=== PATIENT | female | born 1940 | race Caucasian/White ===

== ENCOUNTER 2017-10-02 11:03 | Inpatient (IN) | payer MEDICARE, OTHER ==
[~2017-10-02] VITALS: Ht 158.8 cm; Wt 77.1 kg
--- OUTSIDE RECORDS SUMMARY | ~2017-10-02 | XMS | Clinical Summary ---
Demographics + + + | Address | [address] | | | [place] [address] | + + + | Home Phone | | + + + | Preferred Language | Unknown | + + + | Marital Status | Single | + + + | Nondenominational Affiliation | Unknown | + + + | Race | Unknown | + + + | Ethnic Group | Other Race | + + + Author + + + | Author | [facility] | + + + | Organization | [facility] | + + + | Address | Unknown | + + + | Phone | Unavailable | + + + Care Team Providers + +------+ + | Care Environmental Attorney Name | Role | Phone | + +------+ + PP | Unavailable | + +------+ + Source Comments YOBANY is fully live on both [facility] and [facility]Patient[facility] Allergies Not on File Current Medications Not on file Active Problems Not on file Social History + +-------+ +--------+------+ | Tobacco Use | Types | Packs/Day | Years | Date | | | | | Used | | + +-------+ +--------+------+ | Never Assessed | | | | | + +-------+ +--------+------+ + + + | Sex Assigned at | Date Recorded | | | | + + + | Not on file | | + + + Plan of Treatment + + + + + | Health Maintenance | Due Date | Last Done | Comments | + + + + + | INFLUENZA VACCINE | | | | | (FLU SHOT) | 7 | | | + + + + + Results Not on filefrom Last 3 Months"
[~2017-10-02 11:03] MED LIST: ASPIR 8181 MG PO; LEVOTHYROXINE100 MCG PO; LOVASTATIN40 MG PO; METOPROLOL TART50 MG PO; VITAMIN D31000 UNI1 PO
--- NOTE | 2017-10-21 09:32 | NUR ---
10/21/17 0932 Komal Matson 0968-PATIENT ARRIVED TO PACU ON 4L OXYMASK O2 SAT 99% PATIENT REACTIVE OPENS EYES AND BACK TO SLEEP. SB. NO DRAINAGE TO FRANDY AREA. SOLER CATH IN PLACE. SPINAL LEVEL AT L1.
--- NOTE | 2017-10-21 10:30 | NUR ---
PATIENT TO FLOOR FORM PACU. RECEIVED REPORT FROM SURGERY NURSE OSMEL. PATIENT TRANSFER TO HOSP BED WITH 4 PERS ASSIST. PATIENT A&O. DENIES PAIN AND NAUSEA. PATIENT REPORT NUMBNESS AND TINGLING IN THE LOWER EXTREMITIES DUE TO SPINAL. PERIPHERAL PULSE PALPABLE. IV SITE PATENT AND FLUID STARTED AND IT INFUSING WELL. SOLER IN PLACE DRAINING BRIGHT YELLOW URINE. SKIN INTACT. ICE CHIP GIVEN. WILL CONTINUE TO MONITOR PATIENT CALL LIGHT IN REACH.
--- NOTE | 2017-10-21 11:23 | NUR ---
IN TO ROOM TO TAKE PATIENT VITAL SIGNS. PATIENT DENIES PAIN AT THIS TIME. IV SITE PATENT AND FLUID INFUSING WELL. PATIENT REPORTS DISCOMFORT IN THE LOWER ABD. NO NAUSEA. WILL CONTINUE TO MONITOR.
--- NOTE | 2017-10-21 12:42 | NUR ---
PATIENT RESTING IN BED. VITAL TAKEN AND WNL. PATIENT TOLERATED FOOD WELL. DENIES NAUSEA. REPORT NO PAIN BUT DISCOMFORT IN THE LOWER ABD. POSITIVE BOWEL TONE. NO TENDERNESS WITH ABD PALPATION. PATIENT REPORTS MORE SENSATION ON THE LOWER EXTREMITIES. SOLER IN PLACE. IV FLUID INFUSING WELL. NO DISTRESS. WILL CONTINUE TO MONITOR. CALL LIGHT IN REACH.
--- NOTE | 2017-10-21 13:59 | NUR ---
PATIENT RESTING IN BED DENIES PAIN AT THIS TIME. VS TAKEN AND WNL. PATIENT REPORT FULL SENSATION IN LOWER EXTREMITIES. NO NAUSEA. WILL CONTINUE TO MONITOR. CALL LIGHT IN REACH.
--- NOTE | 2017-10-21 16:10 | NUR ---
PATIENT REPORTED BACK DISCOMFORT FROM LYING IN BED BED. PATIENT ASSISTED TO CHAIR. REPORTED MILD DIZZINESS UPON STANDING. SITTING IN THE CHAIR AT THIS TIME. WARM BLANKET PROVIDED AND FRESH WATER. CALL LIGHT IN REACH. WILL CONTINUE TO MONITOR.
--- NOTE | 2017-10-21 16:58 | NUR ---
DR PERSAUD IN TO ROOM TO EVALUATE PATIENT.
--- NOTE | 2017-10-21 17:39 | NUR ---
PATIENT HAD ABOUT 150ML OF EMESIS. ZOFRAN IV ADMINISTERED. RESTING IN CHAIR. REPORT NO PAIN AT THIS TIME. WILL CONTINUE TO MONITOR.
--- NOTE | 2017-10-21 18:13 | NUR ---
PATIENT HAD A FAIR DAY. HAD NOT REPORTED MUCH PAIN. MILD BACK PAIN. PATIENT HAD 150ML OF EMESIS. ZOFRAN TIME ONCE. UP TO CHAIR. SOLER IN PLACE TO BED IN AM IF AMBULATING. U/O QUANTITY SUFFICIENT. 1-2PERS ASSIST. DIZZINESS UPON RISING. VAGINAL PACKING STILL IN. SCD IN PLACE. NEED TO AMBULATE WHEN ABLE.
--- NOTE | 2017-10-21 18:21 | NUR ---
PT IS SITTING UP IN THE CHAIR VISITING WITH FAMILY. PT IS REQUESTING SOME TOAST. TOAST HAS BEEN ORDERED. VS AND I&O'S TAKEN AND DOCUMENTED. PT STATES NO OTHER NEEDS AT THIS TIME. CALL LIGHT IS IN REACH.
--- NOTE | 2017-10-21 20:02 | NUR ---
RECIEVED REPORT FROM DAY SHIFT RN. PT UP IN CHAIR WITH FAMILY IN ROOM. REPORTS NO NEEDS AT THIS TIME CALL LIGHT WITHIN REACH.
--- NOTE | 2017-10-21 20:55 | NUR ---
VITALS DONE AND CHARTED. WAITING A BIT LONGER TO DO I&OS. BEDSIDE TABLE AND CALL LIGHT WITHIN REACH. REFILLED WATER
--- NOTE | 2017-10-21 22:00 | NUR ---
pt appears to be sleeping. rr wnl scd's in place. call light within reach.
--- NOTE | 2017-10-22 | NUR ---
CHECKED ON PT. O2 SAT AT 87% HR 70. PUT PT ON 1L NC. SATS INCREASED TO 97%. CALL LIGHT WITH IN REACH. REPORTS NO PAIN AT THIS TIME. SCDS IN PLACE.
--- NOTE | 2017-10-22 01:58 | NUR ---
VITALS AND I&OS DONE AND CHARTED. BEDSIDE TABLE AND CALL LIGHT WITHIN REACH. SHE NEEDS NOTHING ELSE AT THIS TIME.
--- NOTE | 2017-10-22 04:47 | NUR ---
EYES CLOSE. SCDS IN PLACE. FLAT FACE, NO GRIMISING. RR WNL. O2 IN PLACE 1 L. STAT AT 97%. HR AT 70. SCANT AMOUNT OF CLEAR VAGINAL DRAINAGE. CHANGED CHUX. FLUIDS INFUSIING. CALL LIGHT WITHIN REACH.
--- NOTE | 2017-10-22 07:35 | NUR ---
PT SBA. AT BEDSIDE. NO N/V. FOELY CATH IN PLACE. DC AM WHEN PT WALKS. CONTINUAL PULSE OX. PT ON 1L O2 OVER NIGHT FOR SAT 87%. SCD'S IN PLACE. NO DRAINAGE. IV IN LEFT HAND. SLEPT MOST THIE NIGHT
--- NOTE | 2017-10-22 08:00 | NUR ---
assessment complete. d/c'd zimmer zimmer at this time. updated patient of plan of care with pvr. in room. assisted patient to chair with minimal assist for breakfast. oatmeal ordered. patient has no swelling in lower legs. lungs clear in upper lobes. crackles in the bases of lungs. encouraged is. pt about to deminstrate is. made sl. patient feeling no nausea at this time. call light with inreach. patient agreed to call to attempt to go to the br for post void.
--- NOTE | 2017-10-22 08:44 | NUR ---
STUDENT NURSE AND RN ENETERED ROOM, GAVE SCHDUELED MEDS AND PRN DIPHENHYDRAMINE FOR ITCHING. TOOK VIALS BEFORE GIVING METAPROLOL. BLOOD PRESSURE AND HR WERE WNLS. EMPTIED SOLER CATH. REMOVED SOLER CATH AT 0800. WHEN ASKED PT ABOUT PAIN SHE SAID JUST A LITTLE BURNING FROM THE REMOVAL OF CATH. PT DENIED ANY PAIN FROM SURGERY AND DENIED NAUSEA. EDUCATED PT ON USING INCENTIVE SPIROMETER 10 TIMES EVERY HOUR. AFTER THE CATH WAS REMOVED WE GOT THE PT TO MOVE TO THE CHAIR TO EAT BREAKFAST. AT FIRST THE PT WAS A LITTLE LIGHT HEADED WHEN SHE STOOD UP BUT WE TOOK IT SLOW MOVING HER TO THE CHAIR. CHANGED DRAW SHEET AND MADE BED. DURING HEAD TO TOE ASSESSMENT THERE WAS EXPECTED BRUISING ON BELLY FROM HEPARIN INJECTIONS. WHILE PT WAS SITTING IN CHAIR SHE KEPT COUGHING AFTER INCENTIVE SPIROMETER. TOLD PT TO PRESS CALL LIGHT WHEN SHE NEEDS TO VOID AND THAT A POST VOID RESIDUAL ASSESSMENT WILL BE PREFORMED ON HER. EDUCATED PT ON ASSESSMENT INCLUDES A BLADDER SCAN AFTER EVERY TIME SHE VOIDS. GOAL OF THE DAY IS TO BE AMBULATING AFTER EVERYTIME SHE VOIDS. DOCTOR CALLED WHILE GIVING THE PT MEDS. DOCTOR DISCONTINUED CONTINUOUS LRS. PT IS NOW ON SALINE LOCK. PT IS EAGER TO MEET WITH DOCTOR THIS MORNING. PT IS SITTING UP RIGHT IN CHAIR, CALL LIGHT IN REACH, AND WAITING FOR BREAKFAST. IN ROOM.
--- NOTE | 2017-10-22 09:22 | NUR ---
patient tolerated breakfast. assisted to the br. tolerating ambulating to br well.
--- NOTE | 2017-10-22 09:30 | NUR ---
HELPED PT TO THE BATHROOM. SHE VOIDED WITHOUT ANY COMPLAINTS. POST RESIDUAL ASSESSMENT PERFORMED. PT WENT TO BATHROOM AGAIN TO TRY TO COMPLETELY EMPTY THE BLADDER. DENIED ANY PAIN OR NAUSEA AT THIS TIME.
--- NOTE | 2017-10-22 10:08 | NUR ---
PATIENT AMBULATE TWO LAPS IN FLORES. NO DIZZINESS OR LIGHTHEADEDNESS. PVR DONE. VOIDED 200MLS/ BLADDER SCAN FOR 60
--- NOTE | 2017-10-22 10:18 | NUR ---
AT 0945 PT AMBULATED HALLWAY. DENIED ANY DIZZINESS OR LIGHTHEADEDNESS. CHANGED INTO CLEAN GOWN. POST RESIDUAL ASSESSMENT PERFORMED. PT THEN VOIDED AGAIN. DOCTOR REMOVED VAGINAL PACKING AND TOLD PT SHE WOULD BE BACK TO CHECK IN ON HER LATER IN THE DAY. PT HAD NO COMPAINTS AT THIS TIME. LAYING BACK DOWN IN BED WATCHING TV. CALL LIGHT IN REACH AND BED LOWERED. IN ROOM. VITALS AND I&OS DOCUMENTED IN ROOM. LUNCH WAS ORDERED.
--- NOTE | 2017-10-22 10:39 | NUR ---
patient resting in bed with hob elevated. awaiting dr. gonzales to take out packing. no pain at this time.
--- NOTE | 2017-10-22 11:00 | NUR ---
pt assist into the shower by nursing project coordinator. patient tolerated being up well. patient voided 500mls. bladder scan for 67mls. patient doing well. cont to have no pain.
--- NOTE | 2017-10-22 11:44 | NUR ---
PT TOLERATED ADLS WELL. DIDNT NEED MUCH ASSISTANCE. SHE STATED SHE FEELS WELL AND IS READY TO GO HOME.
--- NOTE | 2017-10-22 11:48 | NUR ---
ENCOURAGED PT TO USE INCENTIVE SPIROMETER. PT COMPLAINS THAT IT HURTS HER LOWER STOMACH TO USE IT. WILL ENCOURAGE PT TO SPLINT WHILE USING INCENTIVE SPIROMETER.
--- NOTE | 2017-10-22 11:57 | NUR ---
patient tolerated shower well. dressed in own clothing per request. ambulate another two laps in headley. remains pain free. having lunch in chair.
--- NOTE | 2017-10-22 11:58 | NUR ---
PT VOIDED 500ML AND AFTER BLADDER SCAN SHOWED 67ML. PT TOOK SHOWER AND TOLERATED WELL, DIDNT NEED ANY ASSISTANCE. CHANGED INTO HER OWN CLOTHES. AMULATED AROUND THE NURSES STATION TWICE. DENIED ANY DIZZINESS, PAIN, LIGHTHEADEDNESS, OR NAUSEA. PT SITTING IN CHAIR WITH CALL LIGHT IN REACH. PRESENT.
--- NOTE | 2017-10-22 12:40 | NUR ---
patient ambulated another two laps. doing well. voided 300mls. bladder scan for 89. patient stating she feels bloated like she needs to have a bm. refusing prune juice at this time. stating the stuff i have this morning should help. encouraged her to keep ambulating and drinking water. husand in room. no o ther needs at this time. no pain at this time.
[2017-10-22] MEDS ORDERED: MOTRIN IB200 MG PO (13:04)
[2017-10-22] MEDS ORDERED: KONDREMUL2.5 ML/5 M PO (13:06)
[2017-10-22] MEDS ORDERED: SENNA8.6 MG PO (13:07)
--- NOTE | 2017-11-11 13:02 | OR ---
[facility] [address] [place], [place] [address] Signed DATE OF OPERATION: 10/21/2017 SURGEON: Paty Armijo MD NUMERICAL CONTROL MACHINE OPERATOR: Lakhwinder Montes MD PREOPERATIVE DIAGNOSIS: Uterovaginal prolapse. POSTOPERATIVE DIAGNOSIS: Uterovaginal prolapse. PROCEDURE: Total vaginal hysterectomy, bilateral salpingectomy, cystoscopy, rectocele repair with dermis reinforcement. ANESTHESIA: Spinal with IV sedation. ESTIMATED BLOOD LOSS: 75 mL combined. DRAINS: Sewell catheter packs vaginal. INDICATIONS AND FINDINGS: The patient is a 77-year-old female, 3, para 3, who has been having worsening vaginal prolapse and desired surgical intervention. She has had some urinary urgency and frequency, and difficulty evacuating the rectum as well. At the time of surgery, the cervix presented at the hymen. The cervix was quite large and the uterus was fairly small and appeared normal. The tubes and ovaries otherwise appeared normal. After completion of the hysterectomy, the cystocele had essentially resolved. She did have a continued grade 2 rectocele. DESCRIPTION OF PROCEDURE: The patient was prepped and draped in the dorsal lithotomy position. A weighted speculum was placed and the cervix was grasped on the anterior and posterior lips with single-tooth tenaculum. The cervix was injected with 1% lidocaine with 1:200,000 epinephrine, total volume of 10 mL. The posterior cul-de-sac was then attempted to be Electronically Signed By: PATY ARMIJO MD 11/11/17 1302 PATIENT NAME: XAVI NUNO OPERATIVE REPORT DATE OF : 42 REPORT #: [id number] PHYSICIAN: PATY ARMIJO MD PCP: Yaneli CORREA MD REPORT IS CONFIDENTIAL AND NOT TO BE RELEASED WITHOUT AUTHORIZATION [facility] [address] [place], [place] [address] Signed entered. This was done with quite a bit of difficulty because of the size of her cervix, this also skewed more to her right. The cervix was regrasped and the posterior cul-de-sac was then entered, though it was a fairly thick cuff and there was some fat in the vaginal cuff as well. Following this, the swan neck speculum was placed in the posterior cul-de-sac. The curved Z clamps were then placed on the uterosacral ligaments on each side, divided with the Bell scissors and suture ligated with 0 Vicryl. The vaginal mucosa was then circumscribed with a knife and sharp dissection was used to push the vaginal mucosa up off the cervix. The anterior peritoneum was entered at this time as well. Serial bites were then taken on each side incorporating the anterior and posterior peritoneum and taking down the cardinal ligaments and the uterine vessels. Each of these were divided and suture ligated with 0 Vicryl. At this point, the remaining broad ligament pedicles could be clamped across with a curved Z clamps and divided. Free ties of 0 Vicryl were placed followed by suture ligatures of 0 Vicryl. The tube on the patient's right was then grasped with a Marni clamp and clamped with a curved Z clamp and removed. Free tie of 0 Vicryl was placed. The same procedure was done on the patient's left. Following this, the posterior cul-de-sac had quite a bit of separation of the peritoneum to the cuff and several rdrbpc-is-upshb sutures of 0 Vicryl were used to bring the peritoneum to the posterior cuff. There was some bleeding just above the uterosacral ligament on the patient's right and this area was also suture ligated with a ifmdnv-lb-flzkl of 0 Vicryl. The anterior peritoneum was tacked to the cuff with a very superficial suture of 0 Vicryl. Inspection of the cuff showed good hemostasis. Angle sutures then placed using 0 Vicryl and these incorporated the vaginal mucosa exteriorized the utero-ovarian pedicle coming across the peritoneum anteriorly and exiting the uterosacral ligament inferiorly. These were done bilaterally and tied laterally. The cuff itself was then closed with a running locking stitch of 0 Vicryl. A very superficial suture was placed near the right angle, there was a fairly raw area. The cystocele had essentially resolved at this point, and because of the difficulties with the hysterectomy, a cystoscopy was done. The Sewell catheter was removed. The patient had received IV fluorescein. The dome of the bladder was evaluated and there was no evidence of injury. The trigone was also thoroughly evaluated and there was no evidence of injury. Both ureteral orifices were identified and clear urine was seen to freely egress from both of these ureteral orifices. The bladder was then drained and the Sewell catheter replaced. The rectocele repair was then begun. A triangle of tissue was removed from the perineal body with a knife. The vaginal mucosa was then undermined and incised in the midline to the apex of the vagina. The vaginal mucosa was from the underlying tissue with a combination of blunt and sharp dissection. This was carried out superiorly and laterally to the ischial spines. Following this, the Capio device was used to deploy a 0 Vicryl suture into the sacrospinous ligament, medial and Electronically Signed By: PATY ARMIJO MD 11/11/17 1302 PATIENT NAME: XAVI NUNO OPERATIVE REPORT DATE OF : 42 REPORT #: [id number] PHYSICIAN: PATY ARMIJO MD PCP: Yaneli CORREA MD REPORT IS CONFIDENTIAL AND NOT TO BE RELEASED WITHOUT AUTHORIZATION [facility] [address] [place], [place] [address] Signed caudal to the spine for use later. The defect in the perirectal fascia type tissue was then reapproximated with interrupted sutures of 0 Vicryl. This was primarily a tear down the patient's right side and there was some separation on the patient's left. Multiple sutures were placed plicating the defect. Following this, a rectal examination was done, which confirmed no sutures compromising the rectal lumen and good reduction of the defect. Dermis which had been repaired according to the package directions and trimmed into a T-shirt type shape was then sutured at the arms to the Capio sutures of the sacrospinous ligaments, these were tied down with appropriate tension. The graft itself was then tacked into place with interrupted sutures of 2-0 Vicryl. This was done at the cuff, at the armhole areas, and down the sides. Following this, another rectal examination was done, which confirmed that there was no sutures compromising the rectal lumen. FloSeal was then injected around the sacrospinous ligaments on each side for hemostasis. The vaginal mucosa was then trimmed quite a bit because of redundancy. The vaginal mucosa was then closed with a running suture of 2-0 Vicryl. This was done from the apex of the vagina to the hymenal ring. The posterior fourchette was recreated with interrupted sutures of 2-0 Vicryl. The perineal body was recreated with interrupted sutures of 2-0 Vicryl. The skin of the perineum was reapproximated with interrupted sutures of subcuticularly placed of 2-0 Vicryl. Inspection of the vault showed good length and caliber. Good hemostasis was noted. The vagina was then packed with sulfa-coated gauze. The patient was taken to the recovery room in good condition. All sponge and needle counts were correct. MD JAGDISH Cochran/RADHAL /[id number] cc: KEIRA Varela MD Electronically Signed By: PATY ARMIJO MD 11/11/17 1302 PATIENT NAME: XAVI NUNO OPERATIVE REPORT DATE OF : 42 REPORT #: [id number] PHYSICIAN: PATY ARMIJO MD PCP: Yaneli CORREA MD REPORT IS CONFIDENTIAL AND NOT TO BE RELEASED WITHOUT AUTHORIZATION
== END 2017-10-22 13:25 | disposition home or self-care (01) | DRG 743 ==
LOC: DSVR 10-21 05:45 → MS 10-21 06:45
PROVIDERS: ADMIT Obstetrics & Gynecology
PROC: 0UT97ZZ Resection of Uterus, Via Natural or Artificial Opening (ICD-10-PCS; principal; 2017-10-21 06:45)
PROC: 0UT27ZZ Resection of Bilateral Ovaries, Via Natural or Artificial Opening (ICD-10-PCS; principal; 2017-10-21 06:45)
PROC: 0UT77ZZ Resection of Bilateral Fallopian Tubes, Via Natural or Artificial Opening (ICD-10-PCS; principal; 2017-10-21 06:45)
DX: N81.3 Complete uterovaginal prolapse (principal); N88.8 Other specified noninflammatory disorders of cervix uteri; N84.0 Polyp of corpus uteri; D25.1 Intramural leiomyoma of uterus
CPT/HCPCS: 00944; 36415; 76942; 80048; 85027; 88305; C1762; C2631; J0694; J1200; J1644; J2250; J2274; J2405; J2704; J2765; J3010; J7120

== ENCOUNTER 2025-02-27 06:29 | Day surgery (SDC) | payer MEDICARE, OTHER ==
[~2025-02-27] VITALS: Ht 158.8 cm; Wt 72.7 kg
[~2025-02-27 06:29] MED LIST changes: +KONDREMUL2.5 ML/5 M PO; +MIDAZOLAM HCL 5 MG/5 ML VIAL IV PRN; +MOTRIN IB200 MG PO; +SENNA8.6 MG PO; +fentaNYL citrate 100 MCG/2 ML VIAL IV PRN
[2025-02-27 06:52] VITALS: BP 155/60
[2025-02-27] MEDS ORDERED: IRBESARTAN300 MG PO (06:55)
[2025-02-27] MEDS ORDERED: AMLODIPINE BESYL5 MG PO (06:55)
[2025-02-27] MEDS ORDERED: DORZOLAMIDE-TIM10 ML OU (06:58)
[2025-02-27] MEDS ORDERED: LATANOPROST2.5 ML OU (06:58)
[2025-02-27] MEDS ORDERED: LIDOCAINE HCL 1% 5 ML SDV INJ ONE (07:00)
[2025-02-27] MEDS ORDERED: IBLOOD GLUCOSE TEST STRIP 1 EA TEST VI PRN (07:00)
[2025-02-27] MEDS ORDERED: LACTATED RINGER'S 1,000 ML IV SCH (07:00)
[2025-02-27] MEDS ORDERED: MIDAZOLAM HCL 5 MG/5 ML VIAL ONE (07:04)
[2025-02-27] MEDS ORDERED: fentaNYL citrate 100 MCG/2 ML VIAL ONE (07:04)
--- NOTE | 2025-02-27 07:14 | NUR ---
VISITED DURING SPIRITUAL CARE ROUNDS. PT IN OVERALL GOOD SPIRITS, NO IMMEDIATE NEEDS. LOG MARKER PROVIDED SUPPORTIVE PRESENCE, HOSPTITALITY, PRAYER, FACILITATED INTERACTION WITH THERAPY ANIMAL. PT EXPRESSED GRATITUDE, MARIELLA.
--- NOTE | 2025-02-27 08:12 | NUR ---
02/27/25 0812 OswaldSamira PATIENT ARRIVES IN PACU ON 3L O2 VIA NC. SATURATION IS 100% OXYGEN REDUCED TO 2L VIA NC IMMEDIATELY. 0810: PATIENT'S OXYGEN SATURATION REMAINS 100% ON 2L VIA NC. OXYGEN IS DISCONTINUED AT THIS TIME.
[2025-02-27 08:46] VITALS: BP 142/56
--- NOTE | 2025-02-28 10:06 | OR ---
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 POSTOPERATIVE DIAGNOSES: 1. Small polyp distal right colon. 2. 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 PROCEDURE: Total colonoscopy to cecum with cold morcellation polypectomy x1. ANESTHESIA: Intravenous sedation, fentanyl 100 mcg, and Versed 5 mg. INDICATION: This 84-year-old white woman is a patient of Dr. Guzman. She last underwent colonoscopy in 2016. In 2015, she underwent resection of a villous adenoma in the sigmoid area with mucosal lift technique. She is here for surveillance colonoscopy. She has no family history of colon cancer and no symptoms currently. She understands the risk of colonoscopy including, but not limited to bleeding, infection, and perforation and wished to proceed. FINDINGS: The prep was excellent. Complete colonoscopy was undertaken of the cecum with full intubation of the cecum. There was a very small adenomatous appearing polyp of the distal ascending colon, which was excised. The minimal arteriovenous malformation area at the hepatic flexure was noted and no consequence. The remaining colon was normal. DESCRIPTION OF PROCEDURE: The patient was brought to the endoscopy suite and placed in lateral decubitus position, given intravenous sedation to the point of slurred speech and nystagmus. Digital rectal examination was normal. An Olympus video colonoscope was passed in the rectum and manipulated throughout the colon. The scope was advanced ultimately to the cecum with some abdominal wall stabilization. The scope was withdrawn. A very small polyp was noted in the distal ascending colon, which was excised with cold morcellation technique. Further withdrawal Electronically Signed By: CARRILLO GONZALEZ MD 02/28/25 1006 PATIENT NAME: XAVI NUNO OPERATIVE REPORT DATE OF : 42 REPORT #: [id number] PHYSICIAN: CARRILLO GONZALEZ MD PCP: GEOFF GUZMAN MD REPORT IS CONFIDENTIAL AND NOT TO BE RELEASED WITHOUT AUTHORIZATION [facility] [address] [place], [place] [address] Signed showed a minimal arteriovenous malformation, which was flat and not worrisome for bleeding and was left in situ. Further withdrawal showed no other abnormality other than what appeared to be a tattoo in the area of the rectosigmoid from prior villous adenoma excision. The scope was fully withdrawn and retroflexed view showed no sign of abnormality in the lowest part of the rectum. The scope was straightened, withdrawn, and removed. The patient was taken to the recovery room in good condition. CONCLUDING DIAGNOSIS: Very small polyp and AV malformation, minimal and non-worrisome. PLAN: Repeat colonoscopy in 10 years if clinically appropriate at her advanced age of 89 years at that time. She will return to the ongoing care of Dr. Guzman. MD ANGEL Dejesus/PAWEL /[id number] cc: Dr. Guzman Copies: ~ Electronically Signed By: CARRILLO GONZALEZ MD 02/28/25 1006 PATIENT NAME: MICHELLE NUNORA SEGUNDO OPERATIVE REPORT DATE OF : 42 REPORT #: [id number] PHYSICIAN: CARRILLO GONZALEZ MD PCP: GEOFF GUZMAN MD REPORT IS CONFIDENTIAL AND NOT TO BE RELEASED WITHOUT AUTHORIZATION
--- NOTE | 2025-03-01 14:11 | PATH ---
[facility] [address] [place], [place] [address] Signed SPECIMEN(S): A HEPATIC FLEXURE COLON POLYP SPECIMEN SOURCE: A. 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 Post colon polyp x 1 A) polyp FINAL PATHOLOGIC DIAGNOSIS: Hepatic flexure colon polyp - Fragments of tubular adenoma. AMB MICROSCOPIC EXAMINATION: Histologic sections of all submitted blocks are examined by light microscopy. These findings, together with the gross examination, support the pathologic diagnosis. GROSS DESCRIPTION: The specimen, labeled and designated "Demi, S, hepatic flexure colon polyp," is received in formalin and consists of four gutierres soft tissue fragments, ranging from 0.1-0.4 cm. Entirely submitted in (A1). AB (under the direct supervision of a pathologist) The Gross Description was prepared using a voice recognition system. The report was reviewed for accuracy; however, sound-alike word errors, addition and/or deletions may occur. If there is any question about this report, please contact Client Services. ADDITIONAL NOTES: Immunohistochemical and/or in situ hybridization studies if performed in this case included appropriate positive controls that reacted as expected. This test was developed and its performance characteristics determined by [facility]. It has not been cleared or approved by the U.S. Food and Drug Administration. The FDA has determined that such clearance or approval is not necessary. This test is used for clinical purposes. It should not be regarded as investigational or for research. [facility] is certified under the Clinical Laboratory Improvement PATIENT NAME: XAVI NUNO PATHOLOGY DATE OF : 42 REPORT #: [id number] PHYSICIAN: CAMMIE JANG PCP: GEOFF ACEVEDO MD REPORT IS CONFIDENTIAL AND NOT TO BE RELEASED WITHOUT AUTHORIZATION [address], [place] [address] Signed Amendments of 1988 (CLIA) as qualified to perform high complexity clinical laboratory testing. PERFORMING LABORATORY: Technical component was performed by [facility], [address] [place] [address] (CLIA# [id number]). Professional interpretation was performed by [facility] [address] [place] [phone] [id number] Diagnostician: Mary Ibanez MD Pathologist Electronically Signed 03/01/2025 Copies: ~ PATIENT NAME: XAVI NUNO PATHOLOGY DATE OF : 42 REPORT #: [id number] PHYSICIAN: CAMMIE JANG PCP: GEOFF ACEVEDO MD REPORT IS CONFIDENTIAL AND NOT TO BE RELEASED WITHOUT AUTHORIZATION
== END 2025-02-27 08:50 | disposition home or self-care (01) ==
LOC: DS 06:29
PROVIDERS: ATTEND Surgery
PROC: 0DBL8ZX Excision of Transverse Colon, Via Natural or Artificial Opening Endoscopic, Diagnostic (ICD-10-PCS; principal; 2025-02-27 07:30)
DX: D12.3 Benign neoplasm of transverse colon (principal); K55.20 Angiodysplasia of colon without hemorrhage; H40.1190 Primary open-angle glaucoma, unspecified eye, stage unspecified; I10 Essential (primary) hypertension; E03.9 Hypothyroidism, unspecified; Z98.890 Other specified postprocedural states; Z79.899 Other long term (current) drug therapy; Z90.710 Acquired absence of both cervix and uterus
CPT/HCPCS: 88305; 99153; G0500; J2250; J3010; J7121